=== PATIENT | female | born 1995 | race Caucasian/White ===

== ENCOUNTER 2017-10-10 21:38 | Emergency (ER) | payer OTHER ==
[~2017-10-10] VITALS: Ht 172.7 cm; Wt 57.2 kg
[2017-10-10 22:19] LABS: Basophils # (auto) 0.1 uL; Basophils % (auto) 0.5 % (0.0-2.0); Eosinophils # (auto) 0.2 uL; Eosinophils % (auto) 1.5 % (0.0-7.0); Hematocrit 39.4 % (36.0-46.0); Hemoglobin 13.3 g/dL (12.2-16.2); Lymphocytes # (auto) 3.5 uL; Lymphocytes % (auto) 33.6 % (10.0-50.0); Mean Corpuscular Hemoglobin 31.4 pg (28.0-32.0); Mean Corpuscular Hgb Conc. 33.9 g/dL (32.0-36.0); Mean Corpuscular Volume 92.8 fL (80.0-100.0); Monocytes # (auto) 0.9 uL; Neutrophils # (auto) 5.8 uL; Neutrophils % (auto) 55.4 % (37.0-80.0); Platelet Count (auto) 346 10^3/uL (140-450); Red Blood Cells 4.25 10^6/uL (4.0-5.20); Red Cell Distribution Width 12.9 % (11.8-14.3); White Blood Cell 10.4 10^3/uL (4.4-10.8)
[2017-10-10 22:27] LABS: Albumin 3.1 g/dL (3.4-5.0); Calcium 7.4 mg/dL (8.5-10.1)
[2017-10-10 22:30] LABS: Bilirubin, Total 0.2 mg/dL (0.2-1.0); Total Protein 6.3 g/dL (6.4-8.2)
[2017-10-10 22:32] LABS: Potassium 2.9 mmol/L (3.5-5.1)
[2017-10-10] MEDS ORDERED: SODIUM CHLORIDE 0.9% 1,000 ML IV ONE (23:15)
[2017-10-10] MEDS ORDERED: POTASSIUM CHL 20 Meq TABLET PO ONE (23:15)
[2017-10-11 02:15] VITALS: BP 127/78
== END 2017-10-11 03:58 | disposition home or self-care (01) ==
LOC: EDBD 21:38 → ER 21:44
DX: K29.00 Acute gastritis without bleeding (principal)
CPT/HCPCS: 36415; 80053; 85025